=== PATIENT | female | born 1955 | race Caucasian/White ===

== ENCOUNTER 2017-11-03 07:03 | Day surgery (SDC) | payer OTHER ==
[2017-11-03] MEDS ORDERED: PROPOFOL 40 ML (09:35)
== END 2017-11-03 11:11 | disposition home or self-care (01) ==
LOC: GIL 07:03
DX: K92.1 Melena (principal); K29.50 Unspecified chronic gastritis without bleeding; K64.8 Other hemorrhoids; K64.4 Residual hemorrhoidal skin tags; K21.0 Gastro-esophageal reflux disease with esophagitis; K44.9 Diaphragmatic hernia without obstruction or gangrene
CPT/HCPCS: 43239; 82962; 88305; 88312